=== PATIENT | female | born 1935 | race Caucasian/White ===

== ENCOUNTER 2016-11-10 19:25 | Observation (INO) ==
[2016-11-10] MEDS ORDERED: 0.9 % Sodium Chloride 1,000 ML IVC ONE (19:52)
[2016-11-10 20:10] LABS: Bilirubin,Urine Negative (Negative); Blood,Urine Negative (Negative); Clarity,Urine Cloudy (Clear); Color,Urine Yellow (Yellow); Glucose,Urine (UA) Normal (Normal); Ketones,Urine Negative (Negative); Leukocyte Esterase,Urine Negative (Negative); Nitrite,Urine Negative (Negative); Protein,Urine Negative (Neg-Trace); Specific Gravity,Urine 1.013 (1.010-1.025); Urobilinogen,Urine Normal (Normal)
[2016-11-10 20:12] LABS: Hyaline Casts,Urine None Seen per lpf (None-Few); WBC,Urine 0-3 per hpf (0-3)
[2016-11-10 20:26] LABS: Squamous Epithelial Cell,Urine Moderate per lpf (None-Few)
[2016-11-10 20:27] LABS: Bacteria,Urine Few per hpf (None-Few)
[2016-11-10 20:32] LABS: Hemoglobin 10.1 g/dL (11.5-15.4); Red Cell Distribution Width 14.5 % (11.5-14.5)
[2016-11-10 20:34] LABS: Hematocrit 30.6 % (35.3-44.9); Immature Granulocytes % 0.3 % (0-4); Immature Platelets 1.5 % (1.1-6.1); Lymphocytes # 0.4 K/mcL (0.6-4.6); Lymphocytes % 10.2 %; Mean Corpuscular Hemoglobin 29.7 pg (28.0-33.3); Monocytes # 0.3 K/mcL (0.0-1.3); Neutrophils # 3.1 K/mcL (1.6-8.9); Segmented Neutrophils % 82.5 %
--- NOTE | 2016-11-10 20:35 | Emergency Department Note ---
Disposition Clinical Impression: Syncope, Fall, Elevated troponin Disposition: Admitted As Inpatient Condition: Fair Time of Disposition: 23:13 General Adult HPI - General Chief complaint: ED Fall Stated complaint: Fall Time Seen by Provider: 11/10/16 19:46 Source: patient, family, EMS Limitations: no limitations Nursing Notes Reviewed: Yes Vital Signs Reviewed: Yes - History of Present Illness HPI Narrative: 81-year-old female presents to the emergency department after being found down in her home. Patient apparently suffered a fall early Thursday night. Patient states the last thing she remembers watching the [employer] vs. the [employer]. The patient states the next thing she remembers that the phone was ringing. Patient was later found by her son just prior to arrival. Approximate downtime would be almost 24 hours. Patient states that she had no symptoms prior or after. She states she is having no chest pain but does state that she has some crampy abdominal pain which she thinks may be new. Exam is remarkable for an elderly female resting in bed in no acute distress. She is awake, alert and oriented. Heart is regular rate and rhythm. Abdomen is soft with mild tenderness in the right lower and upper quadrants. Minor skin breakdown noted to bilateral knees. She has no tenderness to palpation of the pelvis, knees or ankles. There are no gross injuries noted to the head, face or neck. GCS is 15. Labs, EKG and x-ray ordered. Pt Subjective Complaint: Fall, prolonged downtime Onset (ago): hour(s) (24) Radiation: non-radiation Pain Severity: mild Pain Scale: 5 Consistency: constant Improves with: nothing Worsens with: nothing Associated symptoms: Reports: syncope. Denies: chest pain, cough, headaches, nausea/vomiting, shortness of breath, weakness Treatments Prior to Arrival: none - Related Data Home Medications Medication Instructions Recorded Confirmed Furosemide [Lasix] 40 mg PO 06/28/16 LORazepam [Ativan] 0.5 mg PO HS 06/28/16 06/28/16 Levothyroxine [Synthroid] 50 mcg PO 06/28/16 Lisinopril [Zestril] 5 mg PO DAILY 06/28/16 06/28/16 Omeprazole [PriLOSEC] 20 mg PO DAILY 06/28/16 06/28/16 Spironolactone [Aldactone] 25 mg PO 06/28/16 [place] 5-325 mg PO BID PRN 11/11/16 Previous Rx's Medication Instructions Recorded Docusate Sodium [Colace] 100 mg PO BID #2 capsule 06/28/16 Allergies Allergy/AdvReac Type Severity Reaction Status Date / Time No Known Allergies Allergy Verified 06/28/16 13:54 All systems ED: reviewed and negative except as stated. Constitutional: Denies: fever, chills Cardiovascular: Reports: syncope. Denies: chest pain, palpitations, dyspnea on exertion, orthopnea Respiratory: Denies: cough, dyspnea, wheezes Gastrointestinal: Reports: abdominal pain. Denies: nausea, vomiting Genitourinary: Denies: urgency, dysuria Musculoskeletal: Denies: back pain, neck pain Integumentary: Reports: abrasion. Denies: rash Neurological: Denies: headache, weakness, numbness Past Medical History - Past Medical History Medical history: Reports: arthritis, cirrhosis, dementia, diabetes, hypertension , liver disease, osteoporosis, thyroid disease Psychiatric history: Reports: no psych history - Social History Smoking Status: Former smoker Smokeless Tobacco Status: No Alcohol use: Reports: occasionally Drug use: Reports: none Physical Exam - General Limitations: no limitations General appearance: alert, in no apparent distress - Head Head exam: atraumatic, normocephalic, normal inspection - Chest Chest inspection: Present: normal inspection, symmetric chest wall rise - Respiratory Respiratory exam: Present: normal lung sounds bilaterally - Cardiovascular Cardiovascular exam: Present: regular rate, normal rhythm, normal heart sounds - Abdominal Exam Abdominal exam: Present: soft, tenderness. Absent: distention, guarding, rebound, rigidity Abdominal tenderness: Present: RUQ, RLQ - Extremities Exam Extremities exam: Present: normal inspection. Absent: tenderness, pedal edema, joint swelling - Neurological Exam Neurological exam: Present: alert, oriented X3 - Skin Skin exam: Present: warm, dry, intact, normal color Course - Reevaluation(s) Reevaluation #1: Discussed findings with patient and family. Troponin remained elevated and on recheck. Family is concerned because the patient lives by herself and though she lives in an assisted living facility does not have close monitoring. Patient requesting something for pain. Patient will be admitted to the hospital for further evaluation. Time: 23:13 Reevaluation #2: Discussed case with hospitalist service who has accepted the patient for further evaluation. The recommendations made at this time. Time: 23:37 Vital Signs Temperature 97.6 F 11/10/16 19:26 Pulse Rate 75 11/10/16 19:26 Respiratory Rate 16 11/10/16 19:26 Blood Pressure 106/64 11/10/16 19:26 O2 Sat by Pulse Oximetry 99 11/10/16 19:26 Temperature 98.6 F 11/11/16 04:30 Pulse Rate 66 11/11/16 04:30 Respiratory Rate 14 11/11/16 04:30 Blood Pressure 108/68 11/11/16 04:30 O2 Sat by Pulse Oximetry 96 11/11/16 04:30 Oxygen Delivery Oxygen Delivery Room Air Medical Decision Making - Medical Records Medical records reviewed: Yes I reviewed the patient's medical records. - Lab Data Lab results reviewed: Yes I reviewed the patient's lab results. Result diagrams: 11/10/16 20:24 11/10/16 20:24 Lab Results 11/10/16 11/10/16 11/10/16 Range/Units 20:00 20:24 20:24 WBC 3.7 L (4.3-11.1) K/mcL RBC 3.40 L (3.82-4.97) M/mcL Hgb 10.1 L (11.5-15.4) g/dL Hct 30.6 L (35.3-44.9) % MCV 90.0 (83.0-100.0) fL MCH 29.7 (28.0-33.3) pg MCHC 33.0 (31.6-35.5) g/dL RDW 14.5 (11.5-14.5) % Plt Count 74 L (140-400) K/mcL MPV 10.0 (9.4-12.4) fL Immature Gran % 0.3 (0-4) % Seg Neutrophils % 82.5 % Lymphocytes % 10.2 % Monocytes % 7.0 % Eosinophils % 0.0 % Basophils % 0.0 % Neutrophils # 3.1 (1.6-8.9) K/mcL Lymphocytes # 0.4 L (0.6-4.6) K/mcL Monocytes # 0.3 (0.0-1.3) K/mcL Eosinophils # 0.0 (0.0-0.6) K/mcL Basophils # 0.0 (0.0-0.2) K/mcL Platelet Estimate Decreased L (Normal) Immature Plt Fraction 1.5 (1.1-6.1) % Sodium 139 (136-145) mEq/L Potassium 4.8 H (3.5-4.5) mEq/L Chloride 110 H (98-109) mEq/L Carbon Dioxide 21 (19-29) mEq/L BUN 27 H (7-20) mg/dL Creatinine 1.24 H (0.57-1.11) mg/dL Est GFR ( Amer) 50 L (> 60) Est GFR (Non-Af Amer) 41 L (> 60) BUN/Creatinine Ratio 22 (6-26) Glucose 120 H (70-99) mg/dL Calculated Osmolality 294 (280-300) Lactic Acid (0.5-2.2) mmol/L Calcium 9.1 (8.6-10.8) mg/dL Total Bilirubin 1.2 (0.2-1.2) mg/dL AST 34 (5-34) Units/L ALT 17 (0-55) Units/L Alkaline Phosphatase 81 (38-126) Units/L Creatine Kinase (29-168) Units/L Troponin I (0-0.03) ng/mL Serum Total Protein 6.6 (6.0-8.3) g/dL Albumin 3.0 L (3.5-5.0) g/dL Globulin 3.6 H (2.4-3.5) g/dL Albumin/Globulin Ratio 0.8 L (1.1-2.2) Urine Color Yellow (Yellow) Urine Clarity Cloudy A (Clear) Urine pH 6.0 (5.0-8.0) pH Units Ur Specific [place] 1.013 (1.010-1.025) Urine Protein Negative (Neg-Trace) mg/dL Urine Glucose (UA) Normal (Normal) mg/dL Urine Ketones Negative (Negative) mg/dL Urine Blood Negative (Negative) Urine Nitrite Negative (Negative) Urine Bilirubin Negative (Negative) Urine Urobilinogen Normal (Normal) mg/dL Ur Leukocyte Esterase Negative (Negative) Urine Microscopic RBC Test Not Performed Urine Microscopic WBC 0-3 (0-3) per hpf Ur Squamous Epith Cells Moderate H (None-Few) per lpf Urine Bacteria Few (None-Few) per hpf Hyaline Casts None Seen (None-Few) per lpf Ur Culture Indicated? NO (NO) 11/10/16 11/10/16 11/10/16 Range/Units 20:24 20:24 20:24 WBC (4.3-11.1) K/mcL RBC (3.82-4.97) M/mcL Hgb (11.5-15.4) g/dL Hct (35.3-44.9) % MCV (83.0-100.0) fL MCH (28.0-33.3) pg MCHC (31.6-35.5) g/dL RDW (11.5-14.5) % Plt Count (140-400) K/mcL MPV (9.4-12.4) fL Immature Gran % (0-4) % Seg Neutrophils % % Lymphocytes % % Monocytes % % Eosinophils % % Basophils % % Neutrophils # (1.6-8.9) K/mcL Lymphocytes # (0.6-4.6) K/mcL Monocytes # (0.0-1.3) K/mcL Eosinophils # (0.0-0.6) K/mcL Basophils # (0.0-0.2) K/mcL Platelet Estimate (Normal) Immature Plt Fraction (1.1-6.1) % Sodium (136-145) mEq/L Potassium (3.5-4.5) mEq/L Chloride (98-109) mEq/L Carbon Dioxide (19-29) mEq/L BUN (7-20) mg/dL Creatinine (0.57-1.11) mg/dL Est GFR ( Amer) (> 60) Est GFR (Non-Af Amer) (> 60) BUN/Creatinine Ratio (6-26) Glucose (70-99) mg/dL Calculated Osmolality (280-300) Lactic Acid 2.4 H (0.5-2.2) mmol/L Calcium (8.6-10.8) mg/dL Total Bilirubin (0.2-1.2) mg/dL AST (5-34) Units/L ALT (0-55) Units/L Alkaline Phosphatase (38-126) Units/L Creatine Kinase 150 (29-168) Units/L Troponin I 0.05 H* (0-0.03) ng/mL Serum Total Protein (6.0-8.3) g/dL Albumin (3.5-5.0) g/dL Globulin (2.4-3.5) g/dL Albumin/Globulin Ratio (1.1-2.2) Urine Color (Yellow) Urine Clarity (Clear) Urine pH (5.0-8.0) pH Units Ur Specific [place] (1.010-1.025) Urine Protein (Neg-Trace) mg/dL Urine Glucose (UA) (Normal) mg/dL Urine Ketones (Negative) mg/dL Urine Blood (Negative) Urine Nitrite (Negative) Urine Bilirubin (Negative) Urine Urobilinogen (Normal) mg/dL Ur Leukocyte Esterase (Negative) Urine Microscopic RBC Urine Microscopic WBC (0-3) per hpf Ur Squamous Epith Cells (None-Few) per lpf Urine Bacteria (None-Few) per hpf Hyaline Casts (None-Few) per lpf Ur Culture Indicated? (NO) 11/10/16 Range/Units 22:31 WBC (4.3-11.1) K/mcL RBC (3.82-4.97) M/mcL Hgb (11.5-15.4) g/dL Hct (35.3-44.9) % MCV (83.0-100.0) fL MCH (28.0-33.3) pg MCHC (31.6-35.5) g/dL RDW (11.5-14.5) % Plt Count (140-400) K/mcL MPV (9.4-12.4) fL Immature Gran % (0-4) % Seg Neutrophils % % Lymphocytes % % Monocytes % % Eosinophils % % Basophils % % Neutrophils # (1.6-8.9) K/mcL Lymphocytes # (0.6-4.6) K/mcL Monocytes # (0.0-1.3) K/mcL Eosinophils # (0.0-0.6) K/mcL Basophils # (0.0-0.2) K/mcL Platelet Estimate (Normal) Immature Plt Fraction (1.1-6.1) % Sodium (136-145) mEq/L Potassium (3.5-4.5) mEq/L Chloride (98-109) mEq/L Carbon Dioxide (19-29) mEq/L BUN (7-20) mg/dL Creatinine (0.57-1.11) mg/dL Est GFR ( Amer) (> 60) Est GFR (Non-Af Amer) (> 60) BUN/Creatinine Ratio (6-26) Glucose (70-99) mg/dL Calculated Osmolality (280-300) Lactic Acid (0.5-2.2) mmol/L Calcium (8.6-10.8) mg/dL Total Bilirubin (0.2-1.2) mg/dL AST (5-34) Units/L ALT (0-55) Units/L Alkaline Phosphatase (38-126) Units/L Creatine Kinase (29-168) Units/L Troponin I 0.05 H* (0-0.03) ng/mL Serum Total Protein (6.0-8.3) g/dL Albumin (3.5-5.0) g/dL Globulin (2.4-3.5) g/dL Albumin/Globulin Ratio (1.1-2.2) Urine Color (Yellow) Urine Clarity (Clear) Urine pH (5.0-8.0) pH Units Ur Specific [place] (1.010-1.025) Urine Protein (Neg-Trace) mg/dL Urine Glucose (UA) (Normal) mg/dL Urine Ketones (Negative) mg/dL Urine Blood (Negative) Urine Nitrite (Negative) Urine Bilirubin (Negative) Urine Urobilinogen (Normal) mg/dL Ur Leukocyte Esterase (Negative) Urine Microscopic RBC Urine Microscopic WBC (0-3) per hpf Ur Squamous Epith Cells (None-Few) per lpf Urine Bacteria (None-Few) per hpf Hyaline Casts (None-Few) per lpf Ur Culture Indicated? (NO) - Radiology Data Radiology results reviewed: Yes I reviewed the patient's radiology results. - EKG Data EKG #1 EKG attestation: Yes I reviewed and interpreted this EKG. EKG shows normal: sinus rhythm Rate: normal Rhythm: NSR [place]/QRS: normal Interpretation: no acute changes Attestation Statement - Attestation Attestation: Dr Castañeda note: I saw this pt in conjunction w/ resident Dr Nikia Lopez; Please see his charting for complete documentation; I spent face to face time w/ the pt and agree with the pt's treatment and disposition; patient is unable to ambulate or care for herself at this time. No headache no chest pain or shortness of breath. Patient and family requesting admission
[2016-11-10 20:46] LABS: Albumin/Globulin Ratio 0.8 (1.1-2.2); Bilirubin,Total 1.2 mg/dL (0.2-1.2); Calcium 9.1 mg/dL (8.6-10.8); Globulin 3.6 g/dL (2.4-3.5); Potassium 4.8 mEq/L (3.5-4.5); Total Protein 6.6 g/dL (6.0-8.3)
[2016-11-10 20:49] LABS: Platelet Count 74 K/mcL (140-400)
[2016-11-10 20:51] LABS: Platelet Estimate Decreased (Normal)
[2016-11-10] MEDS ORDERED: *HR* FentaNYL (PF) 100 MCG/2 ML VIAL IV ONE (23:26)
[2016-11-10] MEDS ORDERED: Aspirin 325 MG TABLET PO ONE (23:37)
[2016-11-11] MEDS ORDERED: *HR* OxyCODONE/APAP 5/325 TABLET PO PRN (08:02)
[2016-11-11] MEDS ORDERED: Ipratropium/Albuterol Neb 3 ML IH PRN (08:04)
[2016-11-11] MEDS ORDERED: *HR* Morphine 2 MG/ML SYRINGE IV PRN (08:04)
[2016-11-11] MEDS ORDERED: Naloxone 0.4 MG/ML INJ IVP PRN (08:05)
[2016-11-11] MEDS ORDERED: Ondansetron 4 MG/2 ML VIAL IVP PRN (08:05)
[2016-11-11] MEDS ORDERED: Acetaminophen 325 MG TABLET PO PRN (08:05)
--- NOTE | 2016-11-11 08:10 | Internal Med History&Physical ---
Date of Encounter: 11/11/16 Time of Encounter: 08:07 Assessment and Plan (1) Hepatic encephalopathy Current visit: Yes Status: Acute Possible acute hepatic encephalopathy Check ammonia level and start lactulose The patient has underlying dementia The patient has cirrhosis, she could be at risk of SBP spontaneous bacterial peritonitis Start Rocephin which could be discontinued if he is ruled out, consider paracentesis Mild hydration and hold Lasix and spironolactone (2) Cirrhosis Current visit: Yes Status: Acute Unknown etiology, unknown whether this is a new diagnosis or not With the right pleural effusion Hold Lasix and spironolactone for now Hepatitis panel Qualifiers: Ascites presence: with ascites Qualified Code(s): K74.60 - Unspecified cirrhosis of liver (3) Diabetes Current visit: Yes Status: Acute Order insulin sliding scale Qualifiers: Diabetes mellitus type: type 2 Diabetes mellitus complication status: without complication Diabetes mellitus fdc insulin use: without intermediate frame tender use Qualified Code(s): E11.9 - Type 2 diabetes mellitus without complications (4) Dementia Current visit: Yes Status: Acute Qualifiers: Dementia type: unspecified type Dementia behavioral disturbance: without behavioral disturbance Qualified Code(s): F03.90 - Unspecified dementia without behavioral disturbance (5) Elevated troponin Current visit: Yes Status: Acute Possible demand ischemia Recheck troponin Recheck lactic acid (6) Thrombocytopenia Current visit: Yes Status: Acute Thrombocytopenia and leukopenia likely related to cirrhosis (7) Pleural effusion Current visit: Yes Status: Acute Right pleural effusion likely related to cirrhosis and portal hypertension (8) Syncope Current visit: Yes Status: Acute Unknown etiology Full precautions, continue telemetry Omeprazole for GI prophylaxis and subcutaneous heparin for DVT prophylaxis. The patient will be admitted for observation. She is a full code. Time spent on this admission 40 minutes she is high risk due to cirrhosis and acute metabolic/hepatic encephalopathy Qualifiers: Syncope type: unspecified Qualified Code(s): R55 - Syncope and collapse Internal Medicine - H&P: HPI Chief complaint: Confusion Admitted From: Emergency Dept History of present illness: Ms. Lang is a 81 year old female with a past medical history of dementia, hypertension, diabetes type 2 not insulin-dependent. Patient was brought to the hospital after she was found by her son out of facility where she leaves/ assisted living facility. Patient does not remember what happened but apparently she fell on Thursday after watching a football game remember how she got to the floor, she is still very confused, disoriented in time and complained of severe abdominal pain, crampy like with diarrhea on and off with nausea and vomiting. A CT scan of the abdomen was performed to the emergency room showing a right moderate pleural effusion with evidence of possible cirrhosis and portal hypertension. No ammonia level has been done yet. Patient 's troponin was 0.052 but the patient is denying any chest pain in her EKG does not show any ischemic changes at the moment. White blood cell count is 3.7 , platelets are 74, creatinine 1.24 at baseline. Patient denies any sick contacts, her lactic acid is 2.4. CT scan of the head was performed showing no intracranial hemorrhage. The patient is still very confusing her history is not reliable. Past Med Surg Social Fam HX - Past Medical History Medical history: arthritis, cirrhosis (Unknown whether disease is new or not), dementia, diabetes (Not insulin-dependent), hypertension, liver disease, osteoporosis, thyroid disease, other (Benign breast tumor status post removal, osteoporosis, hypothyroidism, anxiety, GERD) Psychiatric history: no psych history - Past Surgical History Surgical History: appendectomy, breast surgery (Benign breast tumor removed), hysterectomy - Social History Smoking Status: Former smoker (Quit smoking 7 years ago) Smokeless Tobacco Status: No Alcohol use: occasionally Drug use: none - Family History Son Adopted: [place]: Darrian Lang Age: 61 Living Status: Still Living Hx Family Cardiac Disorders: No Hx Family Respiratory Disorders: No Hx Family Cancer: No Hx Family GI Disorders: No Hx Family Genitourinary Disorders: No Hx Family Endocrine Disorder: No Hx Family Musculoskeletal Disorders: No Hx Family Neuromuscular Disorders: No Hx Family Neurologic Disorders: No Hx Family HEENT Disorders: Yes (Perferated ear drum, 6x surgery) Hx Family Autoimmune Disorders: No Hx Family Reproductive Disorders: No Hx Family Psychosocial Disorders: No Hx Family Medical Disorders: No - Additional Family History Additional family history: Patient does not remember her family medical history Internal Medicine - H&P: Meds Furosemide [Lasix] 40 mg PO DAILY 06/28/16 [History] LORazepam [Ativan] 0.5 mg PO HS 06/28/16 [History] Levothyroxine [Synthroid] 50 mcg PO QAM 06/28/16 [History] Lisinopril [Zestril] 5 mg PO DAILY 06/28/16 [History] Omeprazole [PriLOSEC] 20 mg PO DAILY 06/28/16 [History] Spironolactone [Aldactone] 25 mg PO BID 06/28/16 [History] Docusate Sodium [Colace] 100 mg PO BID PRN 11/11/16 [History] Oxycodone HCl/Acetaminophen [Percocet 5-325 mg Tablet] 1 each PO BID PRN [History] Allergies No Known Allergies Allergy (Verified 06/28/16 13:54) All Systems PM: A 10-system review of systems was performed and is negative for pertinent findings except as documented above in the HPI. Review of systems: Physical complaint of abdominal pain, confused. No shortness of breath, no dysuria. Other systems out of the 10 reviewed were negative - Constitutional Vitals: Temp Pulse Resp BP Pulse Ox 97.9 F 68 15 88/56 95 11/11/16 07:57 11/11/16 07:57 11/11/16 07:57 11/11/16 07:57 11/11/16 07:57 General appearance: Present: A&O X 2 (Disoriented in time) - Head Head exam: Present: atraumatic, normocephalic - Eye Eye exam: Present: PERRL, conjuntiva pink, sclera anicteric Pupils: Present: PERRL - Neck Neck exam general surgery: Present: supple, trachea midline. Absent: lymphadenopathy - Respiratory Respiratory exam: Present: CTAB, rales (Blunted breath sounds on the right). Absent: accessory muscle use, rhonchi, wheezes - Cardiovascular Cardiovascular exam: Present: RRR, +S1, +S2. Absent: diastolic murmur, gallop, rubs, systolic murmur - GI/Abdominal GI/Abdominal exam: Present: distended, normal bowel sounds, soft, tenderness ( Diffusely tender), no peritoneal signs - Extremities Exam Extremities exam: Present: warm, radial pulses palpable and symetrical. Absent : calf tenderness, cyanotic, pedal edema - Neurological Exam Neurological exam: Present: CN II-XII intact, no focal deficits. Absent: oriented X3, pronater drift, facial droop, speech deficit Additional comments: Denies any neck rigidity, no photophobia - Skin Skin exam: Present: dry, excoriation (Excoriation on the left knee). Absent: intact Internal Med - H&P Results - Labs CBC & Chem 7: 11/10/16 20:24 11/10/16 20:24
[2016-11-11] MEDS: *HR* Heparin 5,000 UNIT/ML VIAL SQ SCH ×2 (09:10→20:59)
[2016-11-11] MEDS: Lactulose Oral Soln 20 GM/30 ML UDC PO SCH ×3 (09:11→20:59)
[2016-11-11] MEDS: 0.9 % Sodium Chloride 1,000 ML IVC SCH (09:11)
[2016-11-11 10:57] LABS: Hepatitis B Surface Antigen Nonreactive (Nonreactive)
--- NOTE | 2016-11-11 18:24 | Electrocardiograph Report ---
[facility] Test Date: 2016-11-10 Pat Name: Vera Lang Department: 103 Room: 3B44 Gender: F [employer] Apprentice: [facility] : [id number] Requested By: Fabio Lopez Order Number: [id number] Reading MD: Merari Gonzales Measurements Intervals [place] Rate: 75 P: 59 NC: 153 QRS: 37 QRSD: 76 T: 50 QT: 412 QTc: 440 Interpretive Statements SINUS RHYTHM Electronically Signed On 11-11-16 18:23:14 EST by Merari Gonzales
[2016-11-11] MEDS: *HR* LORazepam 0.5 MG TABLET PO SCH (20:58)
[2016-11-12] MEDS: 0.9 % Sodium Chloride 1,000 ML IVC SCH (00:03)
[2016-11-12 05:11] LABS: Basophils % 0.4 %; Eosinophils # 0.1 K/mcL (0.0-0.6); Eosinophils % 1.8 %; Hematocrit 27.2 % (35.3-44.9); Hemoglobin 9.1 g/dL (11.5-15.4); Immature Granulocytes % 0.4 % (0-4); Mean Corpuscular HGB Conc 33.5 g/dL (31.6-35.5); Mean Corpuscular Hemoglobin 29.7 pg (28.0-33.3); Mean Corpuscular Volume 88.9 fL (83.0-100.0); Mean Platelet Volume 10.7 fL (9.4-12.4); Monocytes # 0.2 K/mcL (0.0-1.3); Monocytes % 8.8 %; Neutrophils # 1.6 K/mcL (1.6-8.9); Red Blood Count 3.06 M/mcL (3.82-4.97); Red Cell Distribution Width 14.6 % (11.5-14.5); Segmented Neutrophils % 57.6 %
[2016-11-12 05:12] LABS: BUN/Creatinine Ratio 27 (6-26); Blood Urea Nitrogen 22 mg/dL (7-20); Calcium 8.4 mg/dL (8.6-10.8); Carbon Dioxide 18 mEq/L (19-29); Chloride 114 mEq/L (98-109); Glucose 103 mg/dL (70-99); Osmolality,Calculated 290 (280-300); Potassium 4.6 mEq/L (3.5-4.5); Sodium 138 mEq/L (136-145); eGFR For African Americans > 60 (> 60); eGFR For Non-African Americans > 60 (> 60)
[2016-11-12 05:13] LABS: Lymphocytes # 0.8 K/mcL (0.6-4.6); Platelet Count 56 K/mcL (140-400)
[2016-11-12] MEDS: Lactulose Oral Soln 20 GM/30 ML UDC PO SCH ×3 (07:49→20:20)
[2016-11-12] MEDS: *HR* Heparin 5,000 UNIT/ML VIAL SQ SCH (07:49)
--- NOTE | 2016-11-12 11:32 | Internal Med Progress Note ---
Date of Encounter: 11/12/16 Time of Encounter: 11:15 - Assessment and plan (1) Hepatic encephalopathy Current Visit: Yes Status: Acute Assessment and plan: Improved now. Patient's encephalopathy has resolved. Continue lactulose (2) Pancytopenia Current Visit: Yes Status: Acute Assessment and plan: Likely due to chronic liver disease and cirrhosis. We will monitor for now. Will start folic acid (3) Cirrhosis Current Visit: Yes Status: Acute Assessment and plan: Will get an ultrasound of the abdomen to look at the liver better. Also to assess if there is any pocket of ascites but can be aspirated. Qualifiers: Ascites presence: with ascites Qualified Code(s): K74.60 - Unspecified cirrhosis of liver (4) Dementia Current Visit: Yes Status: Chronic Assessment and plan: Chronic. No acute delirium episodes Qualifiers: Dementia type: unspecified type Dementia behavioral disturbance: without behavioral disturbance Qualified Code(s): F03.90 - Unspecified dementia without behavioral disturbance (5) Diabetes Current Visit: Yes Status: Chronic Assessment and plan: Well controlled blood sugars. Continue to monitor. Qualifiers: Diabetes mellitus type: type 2 Diabetes mellitus complication status: without complication Diabetes mellitus regional project manager insulin use: without fdc use Qualified Code(s): E11.9 - Type 2 diabetes mellitus without complications (6) Elevated troponin Current Visit: Yes Status: Acute Assessment and plan: Remains at 0.05. Likely chronic troponin leak/demand ischemia. No chest pain. No signs of ACS. (7) Syncope Current Visit: Yes Status: Acute Assessment and plan: Likely due to hepatic encephalopathy. Evaluated by physical therapy. [facility]. drive worker has been consulted Qualifiers: Syncope type: unspecified Qualified Code(s): R55 - Syncope and collapse (8) Thrombocytopenia Current Visit: Yes Status: Acute Assessment and plan: Decreased to 56. We will stop heparin. - Subjective Interval history: Patient is feeling better today. She is awake alert and oriented. Continues to have some abdominal bloating and discomfort. Did have good response to lactulose given yesterday with bowel movements. No hematemesis , hematochezia or melena reported. - Constitutional Vitals: Temp Pulse Resp BP Pulse Ox 98.4 F 69 15 107/68 97 11/12/16 07:39 11/12/16 07:39 11/12/16 07:39 11/12/16 07:39 11/12/16 07:39 General appearance: Present: A&O X 3, no acute distress, answers questions appropriately - Respiratory Respiratory exam: Present: CTAB. Absent: accessory muscle use, rales, rhonchi, wheezes - Cardiovascular Cardiovascular exam: Present: RRR, +S1, +S2. Absent: diastolic murmur, gallop, rubs, systolic murmur - GI/Abdominal GI/Abdominal exam: Present: distended, normal bowel sounds, soft, tenderness ( Mild right upper quadrant), no peritoneal signs - Extremities Exam Extremities exam: Present: warm, radial pulses palpable and symetrical. Absent : calf tenderness, cyanotic, pedal edema - Neurological Exam Neurological exam: Present: alert, oriented X3, no focal deficits. Absent: facial droop, speech deficit Additional comments: Normal strength - Skin Skin exam: Present: dry, intact, pallor Internal Medicine: Result - Labs CBC & Chem 7: 11/12/16 04:49 11/12/16 04:49 Labs: Short CBC 11/12/16 Range/Units 04:49 WBC 2.7 L (4.3-11.1) K/mcL Hgb 9.1 L (11.5-15.4) g/dL Hct 27.2 L (35.3-44.9) % Plt Count 56 L (140-400) K/mcL Neutrophils # 1.6 (1.6-8.9) K/mcL BMP 11/12/16 04:49 Sodium 138 Potassium 4.6 H Chloride 114 H Carbon Dioxide 18 L BUN 22 H Creatinine 0.82 Glucose 103 H Calcium 8.4 L Consult Discharge Plan - Plan Referrals: Ashu Jefferson DO [Primary Care Provider] - - Attending Attestation This document has been at least partially created by [employer] recognition technology by Dr. Hardy. Errors in grammar, wording or other phrases may exist. If errors are found after the documentation is signed, they will be addressed individually in the addendum section of this document when appropriate. Medical Decision Making - MDM Narrative Medical decision making narrative: Moderate risk for complications - Lab Data Lab results reviewed: Yes I reviewed the patient's lab results. Result diagrams: 11/12/16 04:49 11/12/16 04:49 Lab Results 11/11/16 11/11/16 11/11/16 Range/Units 09:06 09:06 10:04 WBC (4.3-11.1) K/mcL RBC (3.82-4.97) M/mcL Hgb (11.5-15.4) g/dL Hct (35.3-44.9) % MCV (83.0-100.0) fL MCH (28.0-33.3) pg MCHC (31.6-35.5) g/dL RDW (11.5-14.5) % Plt Count (140-400) K/mcL MPV (9.4-12.4) fL Immature Gran % (0-4) % Seg Neutrophils % % Lymphocytes % % Monocytes % % Eosinophils % % Basophils % % Neutrophils # (1.6-8.9) K/mcL Lymphocytes # (0.6-4.6) K/mcL Monocytes # (0.0-1.3) K/mcL Eosinophils # (0.0-0.6) K/mcL Basophils # (0.0-0.2) K/mcL Sodium (136-145) mEq/L Potassium (3.5-4.5) mEq/L Chloride (98-109) mEq/L Carbon Dioxide (19-29) mEq/L BUN (7-20) mg/dL Creatinine (0.57-1.11) mg/dL Est GFR ( Amer) (> 60) Est GFR (Non-Af Amer) (> 60) BUN/Creatinine Ratio (6-26) Glucose (70-99) mg/dL POC Glucose (58-89) Calculated Osmolality (280-300) Lactic Acid (0.5-2.2) mmol/L Calcium (8.6-10.8) mg/dL Ammonia 58 (18-72) mcmol/L Troponin I 0.05 H* (0-0.03) ng/mL Hepatitis A IgM Ab Nonreactive (Nonreactive) Hep Bs Antigen Nonreactive (Nonreactive) Hep B Core IgM Ab Nonreactive (Nonreactive) Hepatitis C Ab Screen Nonreactive (Nonreactive) 11/11/16 11/12/16 11/12/16 Range/Units 10:04 04:49 04:49 WBC 2.7 L (4.3-11.1) K/mcL RBC 3.06 L (3.82-4.97) M/mcL Hgb 9.1 L (11.5-15.4) g/dL Hct 27.2 L (35.3-44.9) % MCV 88.9 (83.0-100.0) fL MCH 29.7 (28.0-33.3) pg MCHC 33.5 (31.6-35.5) g/dL RDW 14.6 H (11.5-14.5) % Plt Count 56 L (140-400) K/mcL MPV 10.7 (9.4-12.4) fL Immature Gran % 0.4 (0-4) % Seg Neutrophils % 57.6 % Lymphocytes % 31.0 % Monocytes % 8.8 % Eosinophils % 1.8 % Basophils % 0.4 % Neutrophils # 1.6 (1.6-8.9) K/mcL Lymphocytes # 0.8 (0.6-4.6) K/mcL Monocytes # 0.2 (0.0-1.3) K/mcL Eosinophils # 0.1 (0.0-0.6) K/mcL Basophils # 0.0 (0.0-0.2) K/mcL Sodium 138 (136-145) mEq/L Potassium 4.6 H (3.5-4.5) mEq/L Chloride 114 H (98-109) mEq/L Carbon Dioxide 18 L (19-29) mEq/L BUN 22 H (7-20) mg/dL Creatinine 0.82 (0.57-1.11) mg/dL Est GFR ( Amer) > 60 (> 60) Est GFR (Non-Af Amer) > 60 (> 60) BUN/Creatinine Ratio 27 H (6-26) Glucose 103 H (70-99) mg/dL POC Glucose (58-89) Calculated Osmolality 290 (280-300) Lactic Acid 1.4 (0.5-2.2) mmol/L Calcium 8.4 L (8.6-10.8) mg/dL Ammonia (18-72) mcmol/L Troponin I (0-0.03) ng/mL Hepatitis A IgM Ab (Nonreactive) Hep Bs Antigen (Nonreactive) Hep B Core IgM Ab (Nonreactive) Hepatitis C Ab Screen (Nonreactive) 11/12/16 Range/Units 07:37 WBC (4.3-11.1) K/mcL RBC (3.82-4.97) M/mcL Hgb (11.5-15.4) g/dL Hct (35.3-44.9) % MCV (83.0-100.0) fL MCH (28.0-33.3) pg MCHC (31.6-35.5) g/dL RDW (11.5-14.5) % Plt Count (140-400) K/mcL MPV (9.4-12.4) fL Immature Gran % (0-4) % Seg Neutrophils % % Lymphocytes % % Monocytes % % Eosinophils % % Basophils % % Neutrophils # (1.6-8.9) K/mcL Lymphocytes # (0.6-4.6) K/mcL Monocytes # (0.0-1.3) K/mcL Eosinophils # (0.0-0.6) K/mcL Basophils # (0.0-0.2) K/mcL Sodium (136-145) mEq/L Potassium (3.5-4.5) mEq/L Chloride (98-109) mEq/L Carbon Dioxide (19-29) mEq/L BUN (7-20) mg/dL Creatinine (0.57-1.11) mg/dL Est GFR ( Amer) (> 60) Est GFR (Non-Af Amer) (> 60) BUN/Creatinine Ratio (6-26) Glucose (70-99) mg/dL POC Glucose 105 H (58-89) Calculated Osmolality (280-300) Lactic Acid (0.5-2.2) mmol/L Calcium (8.6-10.8) mg/dL Ammonia (18-72) mcmol/L Troponin I (0-0.03) ng/mL Hepatitis A IgM Ab (Nonreactive) Hep Bs Antigen (Nonreactive) Hep B Core IgM Ab (Nonreactive) Hepatitis C Ab Screen (Nonreactive)
[2016-11-12 11:39] LABS: Hepatitis A Antibody IgM Nonreactive (Nonreactive); Hepatitis B Core IgM Nonreactive (Nonreactive); Hepatitis C Virus Antibody Nonreactive (Nonreactive)
[2016-11-12] MEDS: *HR* LORazepam 0.5 MG TABLET PO SCH (20:20)
[2016-11-13 04:33] LABS: Basophils % 0.3 %; Hemoglobin 8.9 g/dL (11.5-15.4); Mean Corpuscular Volume 89.4 fL (83.0-100.0); Red Cell Distribution Width 14.5 % (11.5-14.5)
[2016-11-13 04:35] LABS: Eosinophils # 0.1 K/mcL (0.0-0.6); Eosinophils % 1.7 %; Hematocrit 26.9 % (35.3-44.9); Immature Platelets 2.3 % (1.1-6.1); Lymphocytes # 0.3 K/mcL (0.6-4.6); Lymphocytes % 10.6 %; Mean Corpuscular HGB Conc 33.1 g/dL (31.6-35.5); Mean Corpuscular Hemoglobin 29.6 pg (28.0-33.3); Mean Platelet Volume 10.8 fL (9.4-12.4); Monocytes # 0.2 K/mcL (0.0-1.3); Monocytes % 5.3 %; Neutrophils # 2.5 K/mcL (1.6-8.9); Red Blood Count 3.01 M/mcL (3.82-4.97); Segmented Neutrophils % 82.1 %
[2016-11-13 04:45] LABS: BUN/Creatinine Ratio 21 (6-26); Blood Urea Nitrogen 17 mg/dL (7-20); Calcium 8.4 mg/dL (8.6-10.8); Carbon Dioxide 17 mEq/L (19-29); Chloride 114 mEq/L (98-109); Glucose 114 mg/dL (70-99); Osmolality,Calculated 290 (280-300); Potassium 4.1 mEq/L (3.5-4.5); Sodium 139 mEq/L (136-145); eGFR For African Americans > 60 (> 60); eGFR For Non-African Americans > 60 (> 60)
[2016-11-13 05:01] LABS: Platelet Count 59 K/mcL (140-400)
[2016-11-13] MEDS: Lactulose Oral Soln 20 GM/30 ML UDC PO SCH (08:08)
[2016-11-13 11:16] VITALS: BP 108/63
--- NOTE | 2016-11-13 12:24 | Discharge Summary ---
Date of Encounter: 11/13/16 Time of Encounter: 12:22 - Discharge Diagnosis (1) Hepatic encephalopathy Priority: Primary Status: Acute (2) Pancytopenia Priority: Secondary Status: Acute (3) Cirrhosis Priority: Secondary Status: Acute Qualifiers: Ascites presence: with ascites Qualified Code(s): K74.60 - Unspecified cirrhosis of liver (4) Dementia Priority: Secondary Status: Chronic Qualifiers: Dementia type: unspecified type Dementia behavioral disturbance: without behavioral disturbance Qualified Code(s): F03.90 - Unspecified dementia without behavioral disturbance (5) Diabetes Priority: Secondary Status: Chronic Qualifiers: Diabetes mellitus type: type 2 Diabetes mellitus complication status: without complication Diabetes mellitus vermin exterminator insulin use: without vermin exterminator use Qualified Code(s): E11.9 - Type 2 diabetes mellitus without complications (6) Elevated troponin Priority: Secondary Status: Acute (7) Syncope Priority: Secondary Status: Acute Qualifiers: Syncope type: unspecified Qualified Code(s): R55 - Syncope and collapse (8) Thrombocytopenia Priority: Secondary Status: Acute - Discharge Medications Prescriptions: LORazepam [Ativan] 0.5 mg PO HS #14 tablet Lactulose 20 gm PO TID #1000 ml Oxycodone HCl/Acetaminophen [Percocet 5-325 mg Tablet] 1 each PO BID PRN #10 tablet PRN Reason: Pain Home Medications: Furosemide [Lasix] 40 mg PO DAILY 06/28/16 [History] Levothyroxine [Synthroid] 50 mcg PO QAM 06/28/16 [History] Lisinopril [Zestril] 5 mg PO DAILY 06/28/16 [History] Omeprazole [PriLOSEC] 20 mg PO DAILY 06/28/16 [History] Spironolactone [Aldactone] 25 mg PO BID 06/28/16 [History] Docusate Sodium [Colace] 100 mg PO BID PRN 11/11/16 [History] LORazepam [Ativan] 0.5 mg PO HS #14 tablet 11/13/16 [Rx] Lactulose 20 gm PO TID #1000 ml 11/13/16 [Rx] Oxycodone HCl/Acetaminophen [Percocet 5-325 mg Tablet] 1 each PO BID PRN #10 tablet 11/13/16 [Rx] Allergies/Adverse Reactions: Allergies No Known Allergies Allergy (Verified 06/28/16 13:54) Procedures/tests Complete & Pending: Procedures Performed prior 72 hours Category Date Time Status US liver [US] Routine Exams 11/12/16 11:02 Completed Date of admission: 11/10/16 23:53 Primary care physician: Ashu Jefferson Consults: 11/11/16 00:49 Consult to Cloud Physicist [CONS] Routine Reason for SW Consult: Fell at assisted living facility, was on the floor for an indeterminant amount of time, family interested in ECF 11/11/16 13:42 Consult to Occupational Therapy [CONS] Routine Comment: Evaluate, develop and implement POC Consult to Physical Therapy [CONS] Routine Comment: Evaluate, develop and implement POC Discharging clinician: Gely Hardy Anticipated date of discharge: 11/13/16 - Patient Status Disposition: Transfer SNF Condition: Good Functional capacity at discharge: uses cane/walker Overall status at discharge: patient is back to baseline - Discharge Instructions Follow Up With: Ashu Jefferson, [Primary Care Provider] - (in 1 -2 weeks) Additional Instructions: With GI in 2-3 weeks for Cirrhosis - Diet and Activity Activity: as per physical therapy Diet: advance to your usual diet, low fat, low cholesterol, low salt diet Hospital course: Ms. Lang is a 81 year old female with history of cirrhosis who was hospitalized here with altered mental status. His presumed to be due to hepatic encephalopathy. Her symptoms and signs improved after she was given lactulose and had bowel movements. Her ammonia level that was checked after she was given lactulose was she has continued to receive lactulose and has no further episodes of altered mental status. She is also complaining of abdominal pain. Initially there was concern for spontaneous bacterial peritonitis. CT scan of the abdomen and pelvis and ultrasound of the abdomen were done which showed minimal ascites. Patient's abdomen is nontender. She does not have any signs of inflammation. Her abdominal pain appears to be related to constipation and bloating. As such I do not believe she has spontaneous bacterial peritonitis at this time. She does not require any further antibiotics. She was evaluated by physical therapy and recommended placement to [facility]. layout worker is working on this and patient will be discharged once he has this available for her to get skilled rehabilitation. She will continue to take lactulose for her hepatic encephalopathy. She is already on Lasix and spironolactone for her cirrhosis. She also has pancytopenia. She has not had any episodes of bleeding here. She can follow up with gastroenterology for her cirrhosis. - Time Spent with Patient Total time spent providing and/or coordinating discharge services: Less than 30 minutes (30 min) - Constitutional Vitals: Temp Pulse Resp BP Pulse Ox 98.0 F 73 14 108/63 96 11/13/16 11:12 11/13/16 11:12 11/13/16 11:12 11/13/16 11:12 11/13/16 11:12 General appearance: Present: A&O X 3, no acute distress, answers questions appropriately - Respiratory Respiratory exam: Present: CTAB. Absent: accessory muscle use, rales, rhonchi, wheezes - Cardiovascular Cardiovascular exam: Present: RRR, +S1, +S2. Absent: diastolic murmur, gallop, rubs, systolic murmur - GI/Abdominal GI/Abdominal exam: Present: distended, normal bowel sounds, soft, no peritoneal signs. Absent: tenderness - Extremities Exam Extremities exam: Present: warm, radial pulses palpable and symetrical. Absent : calf tenderness, cyanotic, pedal edema - Neurological Exam Neurological exam: Present: CN II-XII intact, oriented X3, no focal deficits. Absent: facial droop, speech deficit - Attending Attestation This document has been at least partially created by [employer] voice recognition technology by Dr. Hardy. Errors in grammar, wording or other phrases may exist. If errors are found after the documentation is signed, they will be addressed individually in the addendum section of this document when appropriate.
--- NOTE | 2016-11-13 12:30 | Physician Discharge Referral ---
ExtendedCare Referral Info Transfer To: SNF/ Assisted Living Provider in Charge after Transfer: PCP Institutional Level of Care: Skilled - Diagnosis (1) Hepatic encephalopathy Priority: Primary Status: Acute (2) Pancytopenia Priority: Secondary Status: Acute (3) Cirrhosis Priority: Secondary Status: Acute (4) Dementia Priority: Secondary Status: Chronic (5) Diabetes Priority: Secondary Status: Chronic (6) Elevated troponin Priority: Secondary Status: Acute (7) Syncope Priority: Secondary Status: Acute (8) Thrombocytopenia Priority: Secondary Status: Acute Prognosis: Fair Aware of Diagnosis: Patient, Family Aware of Prognosis: Family - Transfer Medications Prescriptions: Lactulose 20 gm PO TID #1000 ml Home Medications: Furosemide [Lasix] 40 mg PO DAILY 06/28/16 [History] LORazepam [Ativan] 0.5 mg PO HS 06/28/16 [History] Levothyroxine [Synthroid] 50 mcg PO QAM 06/28/16 [History] Lisinopril [Zestril] 5 mg PO DAILY 06/28/16 [History] Omeprazole [PriLOSEC] 20 mg PO DAILY 06/28/16 [History] Spironolactone [Aldactone] 25 mg PO BID 06/28/16 [History] Docusate Sodium [Colace] 100 mg PO BID PRN 11/11/16 [History] Oxycodone HCl/Acetaminophen [Percocet 5-325 mg Tablet] 1 each PO BID PRN [History] Lactulose 20 gm PO TID #1000 ml 11/13/16 [Rx] Allergies/Adverse Reactions: Allergies No Known Allergies Allergy (Verified 06/28/16 13:54) - Respiratory Orders Smoking Cessation: Smoking cessation has been advised. For more information, call the [place] Tobacco Quit Line at 5-551-EZQT-NOW. - Ancillary Orders May use pressure relief devices daily prn, May consult with Dentist, Party Host, Quality Nurse PRN - Advance Directives Code Status: Full Code - Mobility Orders Ambulate (per PT) - Rehabiliation Orders Rehab Orders: Evaluation for Physical Therapy, Evaluation for Occupational Therapy - Treatments Skin tear care topically daily PRN per policy - Diet Orders Cardiac CERTIFICATION: I certify that the transfer of the above named patient to an Extended Care Facility is necessary for the continuing treatment of the diagnosis listed. The above information is true and accurate reflection of patient's current condition. Confidential - Redisclosure prohibited without a patient's written consent.
== END 2016-11-13 15:07 ==
LOC: EMEROO 19:25 → 3BNU 19:25 → SUATTDRO 23:53 → 3BNU 11-11 00:18
PROVIDERS: ADMIT Family Medicine; ATTEND Internal Medicine